=== PATIENT | male | born 1955 | race Caucasian/White ===

== ENCOUNTER → 2020-11-20 | Outpatient (CLI) | payer OTHER | LOC: SJCVCIMAG 07:56 | PROVIDERS: ATTEND Internal Medicine | DX: I34.0 Nonrheumatic mitral (valve) insufficiency (principal); I45.10 Unspecified right bundle-branch block; R94.31 Abnormal electrocardiogram [ECG] [EKG]; I11.9 Hypertensive heart disease without heart failure; I49.3 Ventricular premature depolarization; E78.5 Hyperlipidemia, unspecified; Z79.899 Other long term (current) drug therapy; Z87.891 Personal history of nicotine dependence; Z85.028 Personal history of other malignant neoplasm of stomach; Z92.21 Personal history of antineoplastic chemotherapy ==

== ENCOUNTER → 2020-12-15 | Outpatient (CLI) | payer OTHER ==
[~2020-12-15] VITALS: Ht 172.7 cm; Wt 72.6 kg
[~2020-12-15] MED LIST: ASA81BEC PO; COZAAR 25 MG TA25 M1 PO; NORVASC 2.5 MG2.5 M1 PO; OMEPRAZOLE 20 M20 M1 PO; VIAGRA100 MG PO
[2020-12-15 08:34] VITALS: BP 128/74
[2020-12-15 08:43] LABS: HEMOGLOBIN 14.7 gm/dL (14.0-18.0); MCH 28.2 pg (26.0-34.0); MCHC 33.4 g/dL (28.0-37.0); MCV 84.2 fL (80.0-100.0); RBC 5.23 mil/uL (4.50-6.00); WBC 6.8 thou/uL (4.0-11.0)
[2020-12-15 08:52] LABS: POTASSIUM 4.2 mmol/L (3.5-5.1)
--- NOTE | 2020-12-15 13:26 | EKG ---
[place] [address] [facility] [employer] [place] [address] ELECTROCARDIOGRAM REPORT Name: FREDY RUSSELL Room #: REG CLI Lex#: [id number] Admission: 12/15/20 Attend Phys: Tobi Stover Discharge: Date of : 57 Report #: [id number] [facility] Test Date: 2020-12-15 Test Time: 08:34:13 Pat Name: FREDY RUSSELL Department: Room: Gender: M Group Rooms Coordinator: SBULZULLY : 1955 Requested By: Tobi Stover Order Number: [id number] MD: Channing Min Measurements Intervals [place] Rate: 54 P: -16 MS: 178 QRS: -32 QRSD: 158 T: 28 QT: 424 QTc: 402 Interpretive Statements Sinus rhythm Right bundle branch block No previous ECG available for comparison Electronically Signed On 12-15-2020 13:25:56 PROPERTY SPECIALIST by Channing Min [email or web address] <ELECTRONICALLY SIGNED> By: Channing Min MD, [facility] 12/15/20 1325 0834 0834 Channing Min MD, FACC /EPI
--- NOTE | 2020-12-21 12:58 | CATHLAB ---
[facility] [place] [address] INVASIVE PROCEDURE REPORT Name: FREDY RUSSELL Room #: REG [facility] Lex#: [id number] Admission: 12/15/20 Attend Phys: Tobi Stover Discharge: Date of : 57 Report #: [id number] THIS REPORT FOR: cc: Kvng Rodriges Michael DO Lammoglia, Francisco J. MD ~ APPROVED REPORT Study performed: 12/15/2020 09:40:41 Patient Details Patient Status: Out-Patient Room #: The patient is a 65 year-old male Event Personnel Tobi Stover Home Improvement Advisor, Shalom Chamberlain RTR Monitor, Francia Long RTR Scrub, Bairon Cano RN parking line painter Performed Art Access - R femoral artery* Left Heart Cath w/or w/o Coronaries 1911120 [facility] Hemostasis with Manual pressure 52581 Initial Mod Sed Same Phys/QHP Gr 188133 02526 Mod Sed Same Phys/QHP Ea 463223, supervision of conscious sedation Indication Dyspnea, Positive stress test Procedure Narrative The Right Groin^ was infiltrated with 1% Lidocaine subcutaneous anesthesia. A PINNACLE 4FR Sheath #[id number] sheath was inserted into the RFA^. Coronary angiography was performed using coronary diagnostic catheters. The right coronary system was accessed and visualized with a JR4 catheter. The left coronary system was accessed and visualized with a JL4 catheter. The left ventricle was accessed and visualized with a PIGTAIL catheter. Left ventricular/Aortic Valve gradient assessed via catheter pullback. Hemostasis was obtained with manual pressure following sheath removal without any complications. The patient tolerated the procedure well and there were no complications associated with the procedure. There was no hematoma. Intraoperative Conscious Sedation Sedation start time: 1029 Case end Time: 1055 [facility] [address] [place] [address] INVASIVE PROCEDURE REPORT Name: YVONNEFREDY BRANDYN [facility] #: [id number] Admission: 12/15/20 Attend Phys: Tobi Sommers Discharge: Date of : 57 Report #: [id number] Versed 2 mg Fluoro Time: 4.00 minutes Dose: DAP 3267.60 cGycm2 534 mGy Contrast Type and Amount: Omnipaque 50 ml Coronary Angiography The patient's coronary anatomy is right dominant. Diagnostic Cath Left Main Left main is of normal origin and caliber bifurcates left into descending left circumflex. Is free of significant high-grade disease. There is a proximal taper that appears to be an anatomic bend in the vessel LAD Large-caliber type III vessel which courses in the anterior interventricular sulcus giving rise to septal diagonal branches. It is tortuous in its course without significant high-grade lesions identified. Diagonal 1 Small caliber vessel coursing on the anterolateral aspect left ventricle free of high-grade disease Diagonal 2 Small caliber vessel coursing the anterolateral wall free of high-grade disease short in length Circumflex Moderate caliber nondominant vessel gives rise to a small to moderate first marginal branch very soon. Then continues in the AV groove giving rise to posterolateral and lateral wall marginal branch. There is mild irregularities but no high-grade lesions are noted. The posterior wall marginals are very thin diminutive vessels that are not long in length OM1 Small caliber vessel without high-grade lesion coursing on the lateral aspect of the heart OM2 Diminutive caliber vessel without high-grade lesion OM3 Diminutive caliber vessel without high-grade lesion Right Coronary Moderate to large caliber vessel which has normal origin proceeds in the AV groove posteriorly. Gives rise to right atrioventricular small branches in its course as it reaches the crux of the heart gives rise to a small posterior wall branches and posterior descending. Is free of high-grade lesions R PDA Small caliber vessel coursing the posterior interventricular sulcus free of high-grade disease Left Ventriculography Left Ventriculography was not performed. Hemodynamics The aortic pressure is 132/62 mmHg with a mean of 92 mmHg. The left [facility] [address] [place] [address] INVASIVE PROCEDURE REPORT Name: FREDY RUSSELL Room #: [id number] Admission: 12/15/20 Attend Phys: Tobi Sommers Discharge: Date of : 57 Report #: [id number] ventricular pressure is 141/3 mmHg with a mean of mmHg. The left ventricular end diastolic pressure is 22 mmHg. Pullback from the left ventricle to the aorta revealed no gradient across the aortic valve. Conclusion 1. Essentially normal coronary arteries 2. Normal hemodynamics Recommendations Cardiac Risk Reduction Program <ELECTRONICALLY SIGNED> By: Tobi Stover MD 12/21/20 1258 1258 1258 Tobi Stover MD /INF
== END | disposition home or self-care (01) ==
LOC: CATH 07:48
PROVIDERS: ATTEND Internal Medicine
DX: R94.39 Abnormal result of other cardiovascular function study (principal); R06.00 Dyspnea, unspecified; I10 Essential (primary) hypertension; I25.10 Atherosclerotic heart disease of native coronary artery without angina pectoris; K21.9 Gastro-esophageal reflux disease without esophagitis; Z98.890 Other specified postprocedural states; Z79.899 Other long term (current) drug therapy; Z79.82 Long term (current) use of aspirin; Z85.028 Personal history of other malignant neoplasm of stomach